=== PATIENT | female | born 2000 | race Caucasian/White ===

== ENCOUNTER → 2020-11-27 09:38 | Outpatient (CLI) | payer OTHER, SELFPAY ==
[2020-11-27 12:28] LABS: Add Manual Diff / Slide Review NO; Basophils Absolute Auto 0 /uL (0-100); Basophils Percent Auto 0.3 % (0-2); Eosinophils Absolute Auto 100 /uL (0-450); Eosinophils Percent Auto 0.5 % (2-4); Hematocrit 38.4 % (36-46); Hemoglobin 12.9 g/dL (12.0-16.0); Lymphocytes Absolute Auto 1200 /uL (1100-4500); Lymphocytes Percent Auto 10.8 % (25-40); Mean Corpuscular HGB Conc 33.6 % (30-36); Mean Corpuscular Volume 86.2 fL (80-100); Monocytes Absolute Auto 500 /uL (0-900); Monocytes Percent Auto 4.6 % (3-14); Neutrophils Absolute Auto 9600 /uL (1500-7000); Neutrophils Percent Auto 83.8 % (50-75); Platelet Count 286 X10^3/uL (150-400); Red Blood Cell Count 4.46 X10^6/uL (4.0-5.2); Red Cell Distribution Width 14.3 % (11.6-14.8); White Blood Cell Count 11.5 X10^3/uL (4.5-11.0)
[2020-11-27 13:41] LABS: Appearance Urine UA CLEAR; Bilirubin Urine UA NEGATIVE (NEGATIVE); Color Urine UA YELLOW; Glucose Urine UA NEGATIVE (Negative); Ketones Urine UA NEGATIVE (NEGATIVE); Leukocyte Esterase Urine UA 2+ (NEGATIVE); Nitrite Urine UA NEGATIVE (Negative); Occult Blood Urine UA NEGATIVE (Negative); Protein Urine UA NEGATIVE (Negative); Specific Gravity Urine UA <=1.005 (1.000-1.035); Urobilinogen Urine UA 0.2 E.U./dL (0.2)
[2020-11-27 14:22] LABS: RBC Urine None Seen (0-5/HPF); WBC Urine 5-10/HPF (0-5/HPF)
[2020-11-27 14:23] LABS: Bacteria Urine Moderate (10-30); Culture Indicated Urine Specimen Cultured; Squamous Epithelial Cell Urine 1-5 /HPF (0-5/HPF)
[2020-11-28 07:50] LABS: RPR Screen Non Reactive (Non Reactive)
[2020-11-28 10:45] LABS: Varicella IgG Antibody 169 index (Immune >165)
[2020-11-28 17:48] LABS: HIV 1 & 2 Ab/Ag 4th Gen Combo NEGATIVE (NEGATIVE); Hep C Virus Ab w/Reflex Quant NEGATIVE s/c (NEGATIVE); Hepatitis B Surface Antigen NEGATIVE s/c (NEGATIVE); Rubella Antibody IgG 12.2 IU/mL (>15)
== END ==
PROVIDERS: Referring Provider Specialist; Visit Provider Specialist
DX: Z34.01 Encounter for supervision of normal first pregnancy, first trimester (principal)
CPT/HCPCS: 36415; 80055; 81003; 81015; 86787; 86803; 86850; 86900; 86901; 87077; 87086; 87186; 87389

== ENCOUNTER → 2021-01-23 09:06 | Outpatient (CLI) | payer OTHER, SELFPAY ==
[2021-01-25 16:57] LABS: AFP, Serum 48.9 ng/mL (.); Calc Gestational Age Ultrasound (.); Estriol, Free 2.23 ng/mL (.); Inhibin A, Dimeric 67.73 pg/mL (.); Inhibin A, MoM 0.35 (.); Maternal Ethnicity Caucasian (.); Maternal Weight 130 lbs (.); Number of Fetuses No (.); OSBR Risk 1 IN 10000 (.); Results Report (.); Test Results *Screen Negative* (.); hCG, MoM 0.59 (.); hCG, Serum 16617 mIU/mL (.)
== END ==
PROVIDERS: Referring Provider Specialist; Visit Provider Specialist
DX: Z34.02 Encounter for supervision of normal first pregnancy, second trimester (principal); Z3A.19 19 weeks gestation of pregnancy
CPT/HCPCS: 36415; 82105; 82677; 84702; 86336

== ENCOUNTER → 2021-01-24 14:08 | Outpatient (CLI) | payer OTHER, SELFPAY ==
--- NOTE | 2021-01-24 14:09 | DI.US.S_ITS ---
PROCEDURE: US OB >= 14 WEEKS FETUS INDICATIONS: 20 WEEK ANATOMY OUTSIDE/PRIOR DATING DATA: Last menstrual period (LMP): August 24, 2020 . LMP-based estimated date of delivery (MERY): May 31, 2021 . First dating scan (date and location): [place]; November 27, 2020 . Estimated date of delivery (MERY) from first dating scan: June 14, 2021 . TECHNIQUE: Real-time scanning was performed of the fetus, with image documentation and biometric measurements. COMPARISON: [facility], US, OB >= 14 WEEKS FETUS, 01/23/2021, 8:55. FINDINGS: General: A single living intrauterine gestation is present. Presentation: Variable. Placenta: Placental position is anterior , without previa. Amniotic fluid index: 17.5 cm, normal range is 5-24 cm. heart rate: 133 beats per minute. Maternal cervical canal: 2.9 cm long. Normal lower limit is 2.5 cm. biometrics: Biparietal diameter: 4.5 cm Head circumference: 16.9 cm Abdominal circumference: 14.2 cm Femur length: 3.1 cm Estimated gestational age from initial scan: not applicable. Composite gestational age from present scan: 19 weeks, 4 days Estimated weight and percentile: 300 g +/-44 g; 30th percentile Measurement variability for biometric dating: +/- 7 days from 14 weeks to 15 weeks 6 days gestation, +/- 10 days from 16 weeks to 21 weeks 6 days gestation, +/- 2 weeks from 22 weeks to 27 weeks 6 days gestation, +/- 3 weeks for 28 weeks gestation or later. weight reference: 4500 g or EFW >90/95% is considered macrosomia or large for gestational age. EFW <10% is small for gestational age. EFW 5% or less is considered intra-uterine growth restriction. Anatomic survey: Neuro: Ventricles are non-dilated at less than 10 mm. Cisterna magna is normal at 3-11 mm. Cerebellum is normal in size and morphology. Nuchal skin fold: Normal at less than 6 mm between 14-21 weeks gestational age. Face: Nose and lips, facial profile are normal. Spine: No evidence for spina bifida. Heart: 4-chambered heart is present, with normal ventricular outflow tracts. Diaphragm: Diaphragm is intact. Stomach: Left-sided stomach is present. Kidneys: No hydronephrosis. Normal is less than 5 mm in 2nd trimester, less than 7 mm in 3rd trimester. Cord: 3-vessel cord has orthotopic insertion. Bladder: Normal in size. Extremities: All 4 extremities identified. IMPRESSION: Single live intrauterine gestation as detailed above. Dictated by: Trace Matias M.D. on 01/24/2021 at 16:13 Approved by: Trace Matias M.D. on 01/24/2021 at 16:17
== END ==
PROVIDERS: Referring Provider Specialist; Visit Provider Specialist
DX: Z34.02 Encounter for supervision of normal first pregnancy, second trimester (principal); Z3A.19 19 weeks gestation of pregnancy
CPT/HCPCS: 76811

== ENCOUNTER → 2021-02-20 12:15 | Outpatient (CLI) | payer OTHER, SELFPAY | PROVIDERS: Referring Provider Specialist; Visit Provider Specialist | DX: Z34.82 Encounter for supervision of other normal pregnancy, second trimester (principal); Z3A.23 23 weeks gestation of pregnancy | CPT/HCPCS: 87086 ==

== ENCOUNTER → 2021-03-20 08:59 | Outpatient (CLI) | payer OTHER, SELFPAY ==
[2021-03-20 10:55] LABS: Hematocrit 34.4 % (36-46); Hemoglobin 11.7 g/dL (12.0-16.0)
[2021-03-20 11:00] LABS: GTT (PREG) 1 Hour PP 50gm Dose 105 mg/dL (76-139)
== END ==
PROVIDERS: Referring Provider Specialist; Visit Provider Specialist
DX: O26.899 Other specified pregnancy related conditions, unspecified trimester (principal); Z67.91 Unspecified blood type, Rh negative
CPT/HCPCS: 36415; 82950; 85014; 85018; 86850

== ENCOUNTER → 2021-05-22 10:32 | Outpatient (CLI) | payer OTHER, SELFPAY ==
[2021-05-23 08:25] LABS: Strep Grp B PCR NEG for Grp B Strep
== END ==
PROVIDERS: Visit Provider Specialist
DX: Z36.85 Encounter for antenatal screening for Streptococcus B (principal); Z3A.36 36 weeks gestation of pregnancy
CPT/HCPCS: 87653

== ENCOUNTER 2021-06-20 08:46 | Inpatient (IN) | payer OTHER, SELFPAY ==
[2021-06-20 10:28] LABS: Add Manual Diff / Slide Review NO; Basophils Absolute Auto 100 /uL (0-100); Basophils Percent Auto 0.9 % (0-2); Eosinophils Absolute Auto 0 /uL (0-450); Eosinophils Percent Auto 0.2 % (2-4); Hematocrit 36.1 % (36-46); Hemoglobin 12.4 g/dL (12.0-16.0); Lymphocytes Absolute Auto 1300 /uL (1100-4500); Lymphocytes Percent Auto 7.7 % (25-40); Mean Corpuscular HGB Conc 34.2 % (30-36); Mean Corpuscular Hemoglobin 29.2 PG (26-34); Mean Corpuscular Volume 85.3 fL (80-100); Monocytes Absolute Auto 800 /uL (0-900); Monocytes Percent Auto 4.9 % (3-14); Neutrophils Absolute Auto 14300 /uL (1500-7000); Neutrophils Percent Auto 86.3 % (50-75); Platelet Count 228 X10^3/uL (150-400); Red Blood Cell Count 4.23 X10^6/uL (4.0-5.2); Red Cell Distribution Width 15.7 % (11.6-14.8); White Blood Cell Count 16.6 X10^3/uL (4.5-11.0)
[2021-06-20 10:42] LABS: COVID19 -Nasal RAPID Negative (Negative)
[2021-06-20 11:15] LABS: Creatinine Urine Random 52.2 mg/dL; Protein (Total) Urine Random 11 mg/dL (0-12); Protein Creatinine Ratio Urine 0.21 GRAM/24H
[2021-06-20 11:20] LABS: Alanine Aminotransferase 13 IU/L (<35); Albumin 3.8 g/dL (3.5-5.0); Albumin Globulin Ratio 1.1 (1.0-2.8); Alkaline Phosphatase 150 U/L (38-126); Aspartate Aminotransferase 26 IU/L (14-36); BUN Creatinine Ratio 16.1 (6-22); Bilirubin Total 0.7 mg/dL (0.2-1.3); Blood Urea Nitrogen 10 mg/dL (7-17); Calcium 9.1 mg/dL (8.4-10.2); Carbon Dioxide 19 mmol/L (22-32); Chloride 108 mmol/L (98-107); Estimated Glomerular Filt Rate > 60.0 mL/min (>60); Globulin 3.6 g/dL (1.7-4.1); Glucose 84 mg/dL (70-100); HEMOLYSIS < 15 (0-50); Potassium 3.7 mmol/L (3.4-5.1); Sodium 134 mmol/L (137-145); Total Protein 7.4 g/dL (6.3-8.2)
[2021-06-20 11:31] VITALS: BP 125/81
[2021-06-20] MEDS: LACTATED RINGERS 1,000 ML 100 ML IV ×3 (12:53→22:02)
[2021-06-20] MEDS: FENT 2MCG/ML BUPIV 0.125% EPI 200 MCG/100 ML PLAST..BAG 10 MCG EPIDURAL ×2 (13:10→22:03)
--- NOTE | 2021-06-20 14:07 | P.HPOB_ITS ---
OB HPI Date/Time Date of admission: 06/20/21 Date Patient Seen: 06/20/21 Time Patient Seen: 12:30 History of Present Condition Chief complaint: OBS OF LABOR MERY Calculator Estimated Delivery Date Method Current WG Current Estimate 06/14/21 Ultrasound #1 40w 6d Other Estimates 05/31/21 LMP (Certain) 42w 6d : 1 Para: 0 Narrative: 20 year old at 40+6 weeks presenting with regular contractions. Denies leaking or bleeding and reports good FM. Denies ZAVALA, vision changes RUQ pain or edema. No issues with HTN this . Care has been with Dr. Jones. care: good care, initiated at week # (11), number of visits (12) and pounds weight gain (46) Dating criteria OB: based on 1st trimester US only Ultrasounds: normal mid trimester US Obstetrical complications: none Medical complications OB: none Preadmission Labs Last OB Lab Results: Blood Type AB Negative 06/20/21 10:15 06/20/21 Antibody Screen Negative 06/20/21 10:15 06/20/21 Hematocrit 36.1 % (36-46) 06/20/21 10:15 06/20/21 Hemoglobin 12.4 g/dL (12.0-16.0) 06/20/21 10:15 06/20/21 Hepatitis B Surface Antigen Negative s/c (NEGATIVE) 11/27/20 11:32 11/27/20 Hepatitis C Antibody Negative s/c (NEGATIVE) 11/27/20 11:32 11/27/20 Rubella Antibody 12.2 IU/mL (>15) L 11/27/20 11:32 11/27/20 Varicella-Zoster IgG Antibody 169 index (Immune >165) 11/27/20 11:32 11/27/20 Glucose 1 Hour 105 mg/dL (76-139) 03/20/21 10:05 03/20/21 Group B Streptococcus (PCR) Neg for grp b strep 05/22/21 10:32 05/22/21 -: Chlamydia screen: negative and Gonorrhea screen: negative -: PAP smear: Abnormal (ASC-H, +HPV) Genetic Screens: Quad screen: Normal Evaluation Evaluation Baseline heart rate: 130 Variability: Moderate (11-25) monitor accelerations: Present Monitor Decelerations: Absent Contraction Frequency (minutes): 3 Status: Category l Dilation (cm): 3 Effacement (%): 60 station: -3 [facility] Medical History No known health problems Family History Mother Depression Preeclampsia Father No problems noted. Grandmother Bipolar 1 disorder Grandfather Unknown whether patient has any health problems Grandmother Nausea and vomiting in Preeclampsia Grandfather No known health problems Family/Other Preeclampsia Social History marital status: unmarried,living together [place] move in together very soon. ) number of children: 0 household members: significant other lives independently: Yes caregiver/support person: No housing: house pets and animals: No education level: high school occupational status: employed ([employer]: [employer]) current occupational exposures/hazards: No special artur needs: No seatbelt use: always working smoke detector in home: Yes fire extinguisher in home: Yes carbon monox detector in home: Yes firearms in home: No do you feel safe at home: Yes Smoking Status: Former smoker Tobacco: How many years used: 1 quit status: quit date established (09/2020.) second hand exposure: No alcohol intake: never (Does not drink. ) substance use type: does not use during the past year weight has: remained stable well-balanced diet: daily or most days daily servings fruits/ve-4 caffeine: Yes (Some tea, not everyday. ) Type(s) of exercise: walking frequency: daily duration: 15-30 minutes/day Meds Home Medications and Allergies Home Medications Medication Instructions Recorded Confirmed Type prenat.vits,aye,xbn-gajn-gbhwe 1 tab PO DAILY 11/21/20 06/05/21 History pyridoxine (vitamin B6) 25 mg 25 mg PO BID 11/21/20 06/05/21 History tablet Allergies Allergy/AdvReac Type Severity Reaction Status Date / Time No Known Drug Allergies Allergy Verified 12/25/20 09:50 Review of Systems Review of Systems ROS: Yes All systems reviewed with the patient and are negative except as otherwise documented OB Exam Narrative Exam Narrative: Temperature 36.2 BP 140s/90s then down to 120s/80s P 84 HENMT Head: normal to inspection Mouth: oral mucosae normal Eyes General: appearance normal, both eyes and all related structures Resp Effort & Inspection: normal respiratory effort Cardio Rate: regular rate Rhythm: regular rhythm Heart Sounds: S1 normal and S2 normal Extremities Lower extremity: Yes normal to inspection; No edema Estimated Weight (lbs): 7 Objective Labs Result Diagrams: 06/20/21 10:15 06/20/21 10:15 Labs: Laboratory Results - last 24 hr 06/20/21 06/20/21 06/20/21 09:50 10:15 10:15 WBC 16.6 H RBC 4.23 Hgb 12.4 Hct 36.1 MCV 85.3 MCH 29.2 MCHC 34.2 RDW 15.7 H Plt Count 228 Neut % (Auto) 86.3 H Lymph % (Auto) 7.7 L [place] % (Auto) 4.9 Eos % (Auto) 0.2 L Baso % (Auto) 0.9 Neut # (Auto) 00207 H Lymph # (Auto) 1300 [place] # (Auto) 800 Eos # (Auto) 0 Baso # (Auto) 100 Sodium 134 L Potassium 3.7 Chloride 108 H Carbon Dioxide 19 L BUN 10 Creatinine 0.62 Estimated GFR > 60.0 BUN/Creatinine Ratio 16.1 Glucose 84 Calcium 9.1 Total Bilirubin 0.7 AST 26 ALT 13 Alkaline Phosphatase 150 H Total Protein 7.4 Albumin 3.8 Globulin 3.6 Albumin/Globulin Ratio 1.1 U Random Total Protein Urine Creatinine Protein/Creatinin Ratio SARS-CoV-2 (PCR) Negative Blood Type Antibody Screen 06/20/21 06/20/21 10:15 10:29 WBC RBC Hgb Hct MCV MCH MCHC RDW Plt Count Neut % (Auto) Lymph % (Auto) [place] % (Auto) Eos % (Auto) Baso % (Auto) Neut # (Auto) Lymph # (Auto) [place] # (Auto) Eos # (Auto) Baso # (Auto) Sodium Potassium Chloride Carbon Dioxide BUN Creatinine Estimated GFR BUN/Creatinine Ratio Glucose Calcium Total Bilirubin AST ALT Alkaline Phosphatase Total Protein Albumin Globulin Albumin/Globulin Ratio U Random Total Protein 11 Urine Creatinine 52.2 Protein/Creatinin Ratio 0.21 SARS-CoV-2 (PCR) Blood Type AB Negative Antibody Screen Negative Assessment and Plan Assessment and Plan Assessment and Plan narrative: 20 year old at 40+6 weeks in active labor. GBS negative. Blood pressures were elevated on admission but have return to normal range. Pre-eclampsia labs normal and patient without symptoms of pre-eclampsia. GBS, blood type AB negative. Admit for labor Epidural upon request Anticipate Evaluate need for Rhogam after delivery
--- NOTE | 2021-06-20 15:44 | PM.OBPNLAB ---
Date/Time Date Patient Seen: 06/20/21 Time Patient Seen: 15:35 Pain Control Pain control: tolerating well and epidural Pelvic Exam Dilation (cm): 6 Effacement (%): 100 station: -1 Contractions Monitor mode: External Contraction frequency (min): 3 Status status: Category l Heart Rate Baseline: 120 Monitor Accelerations: Present Monitor Decelerations: Absent Monitor Variability: Moderate Assessment and Plan Assessment: active labor Plan: continuous present management Comments: 20 year old at 40+6 weeks in active labor and progressing well. Anticipate .
--- NOTE | 2021-06-20 20:03 | PM.OBPNLAB ---
Date/Time Date Patient Seen: 06/20/21 Time Patient Seen: 19:50 Pain Control Pain control: tolerating well and epidural Pelvic Exam Dilation (cm): 9 Effacement (%): 100 station: 0 Amniotic membrane status: Ruptured (AROM clear fluid) Contractions Monitor mode: External Contraction frequency (min): 3 Status status: Category l Heart Rate Baseline: 30 Monitor Accelerations: Present Monitor Decelerations: Absent Assessment and Plan Assessment: active labor Plan: continuous present management
--- NOTE | 2021-06-20 23:12 | PM.OBPRVD ---
Labor & Delivery Delivery date: 06/20/21 Delivery augmentation: rupture of membranes Delivery monitor: external FHT Route of delivery: L&D Laceration Description: Vaginal - 2nd Degree and Labial Delivery repair: vicryl Estimated blood loss (mL): 200 Anesthesia Type: Epidural Narrative: BRIEF HISTORY: Patient is a 20-year-old at 40 weeks and 6 days who gave on 06/20/21 at 10:36 p.m.. MERY: 06/14/21 Hospital problems: 40 weeks of Epidural analgesia STAGE I: Labor Patient presented in active labor. She went on to receive an epidural with excellent pain control. Artificial rupture membranes occurred at 7:51 p.m. with clear fluid. She was complete at 9:05 p.m.. heart tones were category 1 throughout stage I. Stage I 11 hours and 52 minutes. STAGE II: Delivery Patient was complete and pushed for an hour and a half. She went on to deliver a vigorous male at 10:36 p.m. Infant was vertex and SERVANDO. He was immediately placed on mother's abdomen. Cord was clamped and cut after approximately 1 minute delay. No resuscitation of the required beyond drying and stimulating. STAGE III: Placenta/Cord Placenta delivered spontaneously at 10:44 p.m. and appeared intact with a three-vessel cord. Pitocin bolus given in the IV after delivery of placenta. A right labial laceration and short second-degree vaginal laceration were repaired with 3-0 Vicryl in the usual fashion with good hemostasis. Uterine fundus firm below umbilicus after repair and hemostasis assured. EBL: 200 mL. Needle and sponge counts were correct. The vagina was inspected and no items were left in situ. Patient was doing well with Benito, her and at bedside. [place] Baby 1: Infant gender: Male Presentation: vertex Position: Right Occiput Anterior Placenta delivery description: Spontaneous Cord Vessel Description: 3 Vessels score (1 min): 8 score (5 min): 9 weight: 8 lb 10.344 oz Plan for aftercare: Routine care
[2021-06-21] MEDS: ACETAMINOPHEN 325 MG TABLET 650 MG PO ×2 (01:05→07:00)
[2021-06-21] MEDS: IBUPROFEN 600 MG TABLET PO ×2 (07:00→15:08)
--- NOTE | 2021-06-21 10:18 | P.PNOB_ITS ---
Subjective - OB Subjective Patient comments: no complaints, pain well controlled and tolerating diet baby status: doing well feeding status: exclusively breast feeding Exam Vital Signs (past 8 hours): Temperature 97.9? blood pressure 101/57 rate 87 respirations 16 Narrative Exam Narrative: General: Awake and alert, no acute distress. HEENT: NCAT, EOMI, moist oral mucosa CV: Regular rate and rhythm, no murmurs, rubs or gallops Lungs: CTAB, no wheezes, rales, or rhonchi Abdomen: Soft, nontender; bowel tones active; uterus firm 1 cm below umbilicus Extremities: Warm, no edema Objective Labs Result Diagrams: 06/21/21 11:30 06/20/21 10:15 Labs: Laboratory Results - last 24 hr 06/20/21 06/20/21 06/20/21 09:50 10:15 10:15 WBC 16.6 H RBC 4.23 Hgb 12.4 Hct 36.1 MCV 85.3 MCH 29.2 MCHC 34.2 RDW 15.7 H Plt Count 228 Neut % (Auto) 86.3 H Lymph % (Auto) 7.7 L [place] % (Auto) 4.9 Eos % (Auto) 0.2 L Baso % (Auto) 0.9 Neut # (Auto) 53121 H Lymph # (Auto) 1300 [place] # (Auto) 800 Eos # (Auto) 0 Baso # (Auto) 100 Sodium 134 L Potassium 3.7 Chloride 108 H Carbon Dioxide 19 L BUN 10 Creatinine 0.62 Estimated GFR > 60.0 BUN/Creatinine Ratio 16.1 Glucose 84 Calcium 9.1 Total Bilirubin 0.7 AST 26 ALT 13 Alkaline Phosphatase 150 H Total Protein 7.4 Albumin 3.8 Globulin 3.6 Albumin/Globulin Ratio 1.1 U Random Total Protein Urine Creatinine Protein/Creatinin Ratio SARS-CoV-2 (PCR) Negative Blood Type Antibody Screen 06/20/21 06/20/21 10:15 10:29 WBC RBC Hgb Hct MCV MCH MCHC RDW Plt Count Neut % (Auto) Lymph % (Auto) [place] % (Auto) Eos % (Auto) Baso % (Auto) Neut # (Auto) Lymph # (Auto) [place] # (Auto) Eos # (Auto) Baso # (Auto) Sodium Potassium Chloride Carbon Dioxide BUN Creatinine Estimated GFR BUN/Creatinine Ratio Glucose Calcium Total Bilirubin AST ALT Alkaline Phosphatase Total Protein Albumin Globulin Albumin/Globulin Ratio U Random Total Protein 11 Urine Creatinine 52.2 Protein/Creatinin Ratio 0.21 SARS-CoV-2 (PCR) Blood Type AB Negative Antibody Screen Negative Assessment & Plan Assessment and Plan (1) Spontaneous vaginal delivery: Status: Acute (2) 40 weeks gestation of : Status: Acute Plan day: 1 plan OB: routine care Comments: 20-year-old after uncomplicated spontaneous vaginal delivery. She is recovering well. Anticipate discharge home tomorrow. Time Spent With Patient Time: Total time spent is greater than 50% in coordination of care (as documented) at patient's floor/unit and/or counseling patient: Time with patient: less than 15 minutes
[2021-06-21] MEDS: PRENATAL VIT,CALC/IRON/FOLIC 1 TABLET 1 TAB PO (11:24)
[2021-06-21] MEDS: DOCUSATE 100 MG CAPSULE PO (11:24)
[2021-06-21 11:47] LABS: Add Manual Diff / Slide Review NO; Basophils Absolute Auto 0 /uL (0-100); Basophils Percent Auto 0.2 % (0-2); Eosinophils Absolute Auto 100 /uL (0-450); Eosinophils Percent Auto 0.5 % (2-4); Hematocrit 26.2 % (36-46); Hemoglobin 8.9 g/dL (12.0-16.0); Lymphocytes Absolute Auto 1300 /uL (1100-4500); Lymphocytes Percent Auto 9.1 % (25-40); Mean Corpuscular HGB Conc 34.1 % (30-36); Mean Corpuscular Hemoglobin 29.4 PG (26-34); Mean Corpuscular Volume 86.2 fL (80-100); Monocytes Absolute Auto 1000 /uL (0-900); Monocytes Percent Auto 6.9 % (3-14); Neutrophils Absolute Auto 12300 /uL (1500-7000); Neutrophils Percent Auto 83.3 % (50-75); Platelet Count 210 X10^3/uL (150-400); Red Blood Cell Count 3.03 X10^6/uL (4.0-5.2); Red Cell Distribution Width 15.6 % (11.6-14.8); White Blood Cell Count 14.7 X10^3/uL (4.5-11.0)
[2021-06-22] MEDS: FERROUS SULFATE 325 MG TABLET PO (07:53)
[2021-06-22] MEDS: DOCUSATE 100 MG CAPSULE PO (07:53)
[2021-06-22] MEDS: PRENATAL VIT,CALC/IRON/FOLIC 1 TABLET 1 TAB PO (07:54)
[2021-06-22] MEDS: IBUPROFEN 600 MG TABLET PO (07:54)
[2021-06-22 08:04] VITALS: BP 119/72; PULSE 74; RESP 16; TEMP 36.3
[2021-06-22] MEDS: RHO(D) IMMUNE GLOBULIN 1,500 UNIT SYRINGE 1500 UNIT IM (09:04)
--- NOTE | 2021-06-22 10:30 | P.DS_ITS ---
Discharge Providers Provider Date of admission: 06/20/21 08:46 Discharge Date: 06/22/21 Primary care physician: Doctor Alex MD Consults: 06/21/21 23:22 Consult to Workforce Management Consultant Routine Comment: Discharge provider: Vicenta Sharp DO Summary Hospital Course Date Patient Seen: 06/22/21 Time Patient Seen: 09:45 Diagnoses: Spontaneous vaginal delivery 40 weeks of Acute blood loss anemia Hospital Course: 20-year-old after uncomplicated spontaneous vaginal delivery at 40 weeks and 6 days gestation. Patient presented in active labor. She went on to receive an epidural and deliver a healthy male. QBL with delivery was only 200 mL however she did have a drop in her hemoglobin and hematocrit on day 1 which was more than expected. Admit H&H 12.4/36.1 and H&H 8.9/26.2. Patient stated bleeding was heavier after delivery though nursing did not report excessive blood loss. Vital signs stable throughout delivery and entire period. She denied symptoms of anemia such as shortness of breath, lightheadedness or dizziness. On day of discharge bleeding was reportedly moderate and decreasing. Pain well controlled with ibuprofen. Patient was ambulating, voiding, stooling and tolerating a diet. Breast-feeding was going well without concerns in the . She will discharge home with iron in addition to stool softener and ibuprofen. Advised patient to call for fevers, severe pain or bleeding through more than a pad an hour. Follow-up for visit with Dr. Jones. Peripartum Data Infant Delivery Method: Natural Vaginal Laceration Description: Vaginal - 2nd Degree and Labial complications: none Lind 1: Gender: Male Discharge Diagnosis (1) Spontaneous vaginal delivery: Status: Acute (2) 40 weeks gestation of : Status: Acute Status at Discharge Cognitive/behavioral status at discharge: at baseline, oriented Functional status at discharge: independent ambulation Overall status at discharge: patient is progressing back to baseline Time Spent with Patient Time attestation: Total time spent providing and/or coordinating discharge services: Time spent: Less than 30 minutes Objective Labs Result Diagrams: 06/21/21 11:30 06/20/21 10:15 Labs: Laboratory Results - last 24 hr 06/21/21 06/22/21 11:30 07:08 WBC 14.7 H RBC 3.03 L Hgb 8.9 L Hct 26.2 L MCV 86.2 MCH 29.4 MCHC 34.1 RDW 15.6 H Plt Count 210 Neut % (Auto) 83.3 H Lymph % (Auto) 9.1 L [place] % (Auto) 6.9 Eos % (Auto) 0.5 L Baso % (Auto) 0.2 Neut # (Auto) 97197 H Lymph # (Auto) 1300 [place] # (Auto) 1000 H Eos # (Auto) 100 Baso # (Auto) 0 Maternal Bleed Negative Exam Vital Signs (past 8 hours): - 06/22/21 08:04 Temperature 97.4 F L Pulse Rate 74 Respiratory Rate 16 Blood Pressure 119/72 Narrative Exam Narrative: General: Awake and alert, no acute distress. HEENT: NCAT, EOMI, moist oral mucosa CV: Regular rate and rhythm, no murmurs, rubs or gallops Lungs: CTAB, no wheezes, rales, or rhonchi Abdomen: Soft, nontender; bowel tones active; uterus firm 1 cm below umbilicus Extremities: Warm, no edema Discharge Plan Discharge Plan Patient Disposition: Home Discharge orders & Medications Prescriptions: New ferrous sulfate 325 mg (65 mg iron) Tablet 325 mg PO DAILY Qty: 30 0RF docusate sodium 100 mg Capsule 100 mg PO DAILY Qty: 30 0RF ibuprofen 600 mg Tablet 600 mg PO Q6HR PRN (Reason: Pain, Mild (1-3)) Qty: 30 0RF Continued prenat.vits,aye,[id number] Tablet 1 tab PO DAILY 0RF Discontinued pyridoxine (vitamin B6) 25 mg tablet 25 mg PO BID 0RF Follow up/Referrals: Bev Jones MD [Physician] - 1 Month (Please call Dr. Jones's clinic this week to set up a visit. ) Visit Report/Discharge Packet Stand Alone Forms: Discharge: Care Visit Report Forms: Patient Portal/API, Stroke Signs & Symptoms Discharge Data Primary Care Provider: Miscellaneous,Doctor
[2021-06-22] MEDS: MEASLES,MUMPS,RUBELLA VACC/PF 0.5 ML VIAL SUBCUT (10:32)
== END 2021-06-22 11:25 | disposition home or self-care (01) | DRG 806 ==
PROVIDERS: Admitting Provider Family Medicine; Referring Provider Specialist; Visit Provider Family Medicine
DX: O48.0 Post-term pregnancy (principal); D62 Acute posthemorrhagic anemia; Z37.0 Single live birth; Z3A.40 40 weeks gestation of pregnancy; O70.1 Second degree perineal laceration during delivery; Z20.822 Contact with and (suspected) exposure to COVID-19; O90.81 Anemia of the puerperium
CPT/HCPCS: 01967; 36415; 59050; 59400; 59409; 80053; 82570; 84156; 85025; 85461; 86850; 86900; 86901; 87635; C9803; G0379; J2790